=== PATIENT | female | born 1935 | race Caucasian/White ===

== ENCOUNTER 2022-03-20 09:58 | Outpatient (CLI) | payer MEDICARE, OTHER ==
--- NOTE | 2022-03-20 10:53 | XRAY Report ---
PROCEDURE: Chest 2 View X-Ray INDICATIONS: UNINTENTIONAL WEIGHT LOSS TECHNIQUE: 2 view(s) of the chest. COMPARISON: None. FINDINGS: Surgical changes and devices: None. Lungs and pleura: No pleural effusions or pneumothorax. Lungs are clear. Mediastinum: Mediastinal contours are normal. Heart size is normal. Bones and chest wall: No suspicious bony abnormalities. Soft tissues appear unremarkable. IMPRESSION: No acute process. Reviewed by: Eleanor Grant MD on 03/20/2022 10:52 AM PDT Approved by: Eleanor Grant MD on 03/20/2022 10:52 AM PDT Station ID: [id number]
== END 2022-03-20 09:59 | disposition home or self-care (01) ==
LOC: DI.S 09:58
PROVIDERS: ATTEND Registered Nurse
DX: R63.4 Abnormal weight loss (principal)
CPT/HCPCS: 36415; 71046; 80053; 82043; 82570; 83036; 84443; 85025; 85651; 86140; 86803; G0475; 87389

== ENCOUNTER 2022-03-20 10:12 | Outpatient (CLI) | payer MEDICARE, OTHER ==
[2022-03-20 14:35] LABS: BASOPHILS % (AUTO) 0.5 %; EOSINOPHILS # (AUTO) 0.1 10^3/uL (0.0-0.7); EOSINOPHILS % (AUTO) 1.4 %; HCT - HEMATOCRIT 46.6 % (37.0-47.0); HGB - HEMOGLOBIN 14.8 g/dL (12.0-16.0); LYMPHOCYTES # (AUTO) 0.9 10^3/uL (1.5-3.5); LYMPHOCYTES % (AUTO) 20.7 %; MEAN CORPUSCULAR HEMOGLOBIN 30.5 pg (27.0-31.0); MEAN CORPUSCULAR HGB CONC 31.8 g/dL (32.0-36.0); MEAN CORPUSCULAR VOLUME 96.1 fL (81.0-99.0); MEAN PLATELET VOLUME 10.8 fL (7.9-10.8); MONOCYTES # (AUTO) 0.5 10^3/uL (0.0-1.0); MONOCYTES % (AUTO) 10.9 %; NEUTROPHILS # (AUTO) 2.9 10^3/uL (1.5-6.6); NEUTROPHILS % (AUTO) 66.3 %; PLT - PLATELET COUNT 223 10^3/uL (130-450); RED BLOOD COUNT 4.85 10^6/uL (4.20-5.40); RED CELL DISTRIBUTION WIDTH 13.3 % (12.0-15.0); WHITE BLOOD COUNT 4.3 x10^3/uL (4.8-10.8)
[2022-03-20 15:11] LABS: ALBUMIN/GLOBULIN RATIO 1.2 (1.0-2.2); ALKALINE PHOSPHATASE 81 IU/L (42-121); ALT ALANINE AMINOTRANSFERASE 31 IU/L (10-60); AST ASPARTATE AMINOTRANSFERASE 38 IU/L (10-42); BILIRUBIN,TOTAL 1.1 mg/dL (0.2-1.0); BUN - BLOOD UREA NITROGEN 18 mg/dL (6-20); CALCIUM 9.5 mg/dL (8.5-10.3); CARBON DIOXIDE - CO2 27 mmol/L (21-32); CHLORIDE 101 mmol/L (101-111); CREATININE 0.6 mg/dL (0.4-1.0); ESTIMATED AVERAGE GLUCOSE 111 mg/dL (70-100); GFR - MDRD 95 (>89); GLUCOSE 113 mg/dL (70-100); HEMOGLOBIN A1c% 5.5 % (4.27-6.07); POTASSIUM 4.1 mmol/L (3.5-5.0); SODIUM 137 mmol/L (135-145); TOTAL PROTEIN 7.3 g/dL (6.7-8.2)
[2022-03-20 15:17] LABS: CRP - C-REACTIVE PROTEIN < 1.0 mg/dL (0-1.0)
[2022-03-20 15:18] LABS: CREATININE,URINE 125.9 mg/dL; MICROALBUM/CREATININE RATIO,UR 15.9 ug/mg (<30.0)
[2022-03-20 15:43] LABS: THYROID STIMULATING HORMONE 2.37 uIU/mL (0.34-5.60)
[2022-03-21 04:08] LABS: HIV SCREEN 4TH GENERATION Non Reactive (Non Reactive)
[2022-03-21 04:08] LABS: HCV AB <0.1 s/co ratio (0.0-0.9)
== END 2022-03-20 10:13 | disposition home or self-care (01) ==
LOC: LAB.S 10:12
PROVIDERS: ATTEND Registered Nurse
DX: R63.4 Abnormal weight loss (principal)
CPT/HCPCS: 36415; 80053; 82043; 82570; 83036; 84443; 85025; 85651; 86140; 86803; G0475; 87389